=== PATIENT | female | born 1975 | race Two or more races ===

== ENCOUNTER 2025-01-26 13:21 | Emergency (ER) | payer SELFPAY ==
[2025-01-26 13:24] VITALS: BMI 46.5
--- NOTE | 2025-01-26 13:28 | EKG_ITS ---
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
[2025-01-26 13:36] VITALS: BP 179/135; BP 190/111; PULSE 89; RESP 20; TEMP 36.9; O2SAT 98; BMI 47.2
--- NOTE | 2025-01-26 13:39 | XR_ITS ---
EXAMINATION: PA lateral chest 2 views TECHNIQUE: Upright PA lateral chest 2 views Date and time: January 26, 2025, 1406 hours INDICATIONS: Cardiac palpitations today. FINDINGS: Normal heart size Lungs are clear. Osseous structures are intact IMPRESSION: No active disease
--- NOTE | 2025-01-26 13:39 | XR_ITS ---
Examination: CT brain head without contrast. 2-D sagittal coronal reconstructions Date and time of exam: January 26, 2025, 1417 hours INDICATIONS: Headaches with dizziness beginning today CTDI: vol (mGy): 53.2 DLP: (mGycm): 1100 Technique: Multiple CT axial sections of the brain have been obtained, 5 mm slice thickness. Contrast has not been administered. 2-D sagittal, coronal reconstructions have been obtained Low dose protocols were performed. One or more of the following dose reduction techniques were used; automated exposure control, adjustment of the mA and/or KV according to patient size, use of iterative reconstruction technique. Findings: No significant ventricular enlargement. Intra-axial or extra-axial hemorrhage density is not seen. No mass effect or midline shift Basal cisterns are not remarkable. Fourth ventricle is midline. Cranial vault intact. Impression: Negative for acute hemorrhage, mass effect or midline shift Advise clinical correlation and follow-up accordingly
--- NOTE | 2025-01-26 13:42 | PD.EDRME ---
Rapid Medical Screening Exam RME Arrival date/time: 01/26/25 13:21 49-year-old female presents to the Emergency Department today for complaints of chest pain and headache as well as high blood pressure Chief Complaint: Arrhythmia/Palpitations Vital signs reviewed by provider: Yes Exam: On exam patient appears well does not appear ill or toxic Clinical Impression: Labs and imaging as well as EKG obtained
[2025-01-26 13:57] LABS: Collection Type, Urine Clean Catch
[2025-01-26 14:00] LABS: Basophils # (Auto) 0.1 Thou/mm3 (0.0-0.2); Basophils % (Auto) 1 % (0-2.5); Eosinophils # (Auto) 0.1 Thou/mm3 (0.0-0.5); Eosinophils % (Auto) 1 % (0-10); Hematocrit 40.0 % (36.0-46.0); Hemoglobin 12.8 g/dL (12.0-16.0); Immature Granulocytes Auto 0.04 Thou/mm3 (0.00-0.00); Lymphocytes # (Auto) 2.8 Thou/mm3 (1.0-4.8); Lymphocytes % (Auto) 34 % (10-50); Mean Corpuscular HGB Conc 32.0 g/dl (31.0-37.0); Mean Corpuscular Hemoglobin 26.9 pg (25.0-35.0); Mean Corpuscular Volume 84 fL (80-100); Monocytes # (Auto) 0.4 Thou/mm3 (0.0-0.8); Monocytes % (Auto) 5 % (0-12); Neutrophils # (Auto) 5.0 Thou/mm3 (1.8-7.7); Neutrophils % (Auto) 60 % (37-80); Nucleated Red Blood Cell # 0.00 Thou/mm3 (0.00-0.00); Nucleated Red Blood Cell % 0 /100 WBC (0); Platelet Count 229 Thou/mm3 (140-440); RDW Standard Deviation 43.0 fL (36.4-46.3); Red Blood Count 4.76 Miln/mm3 (4.00-5.20); White Blood Count 8.3 Thou/mm3 (3.6-11.0)
[2025-01-26 14:07] LABS: Bacteria,Urine Rare; Bilirubin,Urine Negative (Negative); Blood,Urine Negative (Negative); Clarity,Urine Clear (Clear/Hazy); Color,Urine Lt-Yellow (Lt Yel-Yel); Culture Indicated,Urine Not Indicated; Glucose, Urine Negative (Negative); Ketones,Urine Negative (Negative); Leukocyte Esterase,Urine Positive (Negative); Nitrite,Urine Negative (Negative); PH,Urine 7.0 (5.0-7.0); Protein,Urine Negative (Neg - Trace); RBC,Urine 2 /hpf (0-3); Specific Gravity,Urine 1.019 (1.001-1.035); Squamous Epithelial Cell,Urine < 1 /hpf (0-5); Urobilinogen,Urine Negative mg/dL (0.0-1.0); WBC,Urine 1 /hpf (0-5)
[2025-01-26 14:08] LABS: HCG Qualitative,Urine Negative
[2025-01-26 14:12] LABS: Amphetamine/Methamp Scrn,U Negative (Negative); Barbiturate Screen,Urine Negative (Negative); Benzodiazepines Screen,Urine Negative (Negative); Benzoylecgonine Screen, Ur Negative (Negative); Fentanyl Screen,Urine Negative (Negative); Opiate Screen,Urine Negative (Negative); THC Screen,Urine Negative (Negative)
[2025-01-26 14:15] LABS: INR 0.9 (0.9-1.3); Partial Thromboplastin Time 28.8 Seconds (22.0-36.0); Prothrombin Time 10.1 Seconds (9.0-12.2)
[2025-01-26 14:16] LABS: B-Type Natriuretic Peptide 46 pg/mL (0-100)
[2025-01-26 14:19] LABS: Alanine Aminotransferase 15 U/L (10-49); Albumin, Serum 4.9 gm/dL (3.5-5.0); Albumin/Globulin Ratio 1.6 (1.2-2.2); Alkaline Phosphatase 76 U/L (46-116); Anion Gap 8 (7-16); Aspartate Amino Transferase 14 U/L (0-34); BUN/Creatinine Ratio 9 Ratio (12-20); Bilirubin,Total 0.4 mg/dL (0.3-1.2); Blood Urea Nitrogen 7 mg/dL (9-23); Calcium 9.2 mg/dL (8.3-10.6); Calcium (Corrected) 9.2 mg/dL (8.5-10.1); Carbon Dioxide 25.7 mMol/L (20.0-31.0); Chloride 107 mMol/L (98-107); Creatinine (Component) 0.8 mg/dL (0.6-1.3); Estimated Creatinine Clearance 117.7 mL/min (>60); Globulin 3.1 gm/dL (2.3-3.5); Glucose 92 mg/dL (74-106); Magnesium 2.2 mg/dL (1.6-2.6); Osmolality,Calculated 279 (275-295); Potassium 4.2 mMol/L (3.4-5.1); Sodium 141 mMol/L (136-145); Total Protein 8.0 gm/dL (5.7-8.2); Troponin I < 0.002 ng/mL (0.0-0.045); eGFR > 60 See Note
[2025-01-26 15:19] VITALS: BP 182/113; PULSE 79
[2025-01-26 15:20] VITALS: BP 182/113; PULSE 73; RESP 18; TEMP 36.9; O2SAT 98
[2025-01-26 16:53] VITALS: BP 159/100; PULSE 78; RESP 18; TEMP 36.5; O2SAT 97
--- NOTE | 2025-01-26 16:53 | EDNOTE_ITS ---
ED Arrhythmia Palp. RME/HPI General Chief Complaint: Arrhythmia/Palpitations Stated Complaint: RED EYE, PALPITATIONS AT 0200 Arrival date/time: 01/26/25 13:21 Limitations: no limitations RME / HPI RME / HPI narrative: 01/26/25 13:21 49-year-old female presents to the Emergency Department today for complaints of chest pain and headache as well as high blood pressure DR. JASON DIAZ ED EVALUATION 49 year old female with history of hypertension presents to the ED for evaluation of palpitations and chest pressure that woke her from sleep at 02:00 AM today. Accompanied by a headache and left eye redness. Patient mentioned her PCP is out of the office until 02/01/2025 and has not been taking her antihypertensive medications as directed due to running low. Denies any fevers, chills, sweats, cough, shortness of breath, abdominal pain, n/v/d, or urinary symptoms. Exam: On exam patient appears well does not appear ill or toxic Impression: Labs and imaging as well as EKG obtained Related Data Home Medications ?Medication ?Instructions ?Recorded ?Confirmed lisinopril 40 mg tablet mg 01/26/25 metoprolol succinate 50 mg mg PO 01/26/25 tablet,extended release 24 hr Previous Rx's ?Medication ?Instructions ?Recorded diazepam 10 mg tablet (Valium) 10 mg PO BID PRN muscle 02/10/20 spasm/tension #10 tabs naproxen 500 mg tablet (Naprosyn) 500 mg PO BID PRN pa in #30 tabs 02/10/20 lisinopril 40 mg tablet 40 mg PO QDAY #30 tabs 01/26 metoprolol succinate 50 mg 50 mg PO QDAY #30 tabs 01/02 08/25 tablet,extended release 24 hr Allergies Allergy/AdvReac Type Severity Reaction Status Date / Time No Known Allergies Allergy Verified 01/26/25 13:24 Review of Systems Review of Systems Systems Reviewed: All systems reviewed, normal except as documented Past Medical History Past Medical History CARDIAC: Positive Cardiac Disorders and Hypertension RESPIRATORY: Positive Asthma PSYCHO/SOCIAL: Positive Anxiety Family History FAMILY HISTORY: Positive Family Cardiac Disorders, Family Cancer and Family Surgery; Negative Family Respiratory Disorders Social History SMOKING STATUS: Never smoker SUBSTANCE USE: does not use ED Exam General Limitations: Present no limitations General appearance: Present alert and in no apparent distress Head Head exam: Present atraumatic Eye Eye exam: Present PERRL, EOMI and other (subconjunctival hemorrhage right eye ) ENT ENT exam: Present normal exam, normal oropharynx and mucous membranes moist Neck Neck exam: Present normal inspection, full ROM and trachea midline Chest Chest inspection: Present normal inspection and symmetric chest wall rise Respiratory Respiratory exam: Present normal lung sounds bilaterally Cardiovascular Cardiovascular exam: Present regular rate, normal rhythm and normal heart sounds Abdominal Exam Abdominal exam: Present soft and normal bowel sounds Extremities Exam Extremities exam: Present normal inspection and full ROM Back Exam Back exam: Present normal inspection and full ROM Neurological Exam Neurological exam: Present alert, oriented X3 and CN II-XII intact Psychiatric Psychiatric exam: Present normal affect and normal mood Skin Skin exam: Present warm, dry, intact and normal color Course Quality Measures none Orders Category Date Time Status EKG (ED ONLY) *Do not use* NOW Care 01/26/25 13:[address] head/brain wo con Stat Exams 01/26/25 13:39 Completed EKG (ED Only) Stat Exams 01/26/25 13:28 Draft XR chest 2V Stat Exams 01/26/25 13:39 Completed B-Type Natriuretic Peptide Stat Lab 01/26/25 13:48 Completed CBC Stat Lab 01/26/25 13:48 Completed Comprehensive Metabolic Panel Stat Lab 01/26/25 13:48 Completed Drug Screen,Urine Stat Lab 01/26/25 13:51 Completed HCG Qualitative,Urine Stat Lab 01/26/25 13:51 Completed Magnesium Stat Lab 01/26/25 13:48 Completed Partial Thromboplastin Time Stat Lab 01/26/25 13:48 Completed Prothrombin Time with INR Stat Lab 01/26/25 13:48 Completed Troponin I Stat Lab 01/26/25 13:48 Completed Troponin I Stat Lab 01/26/25 16:35 Received Urinalysis, C/S if Indicated Stat Lab 01/26/25 13:51 Completed cloNIDine HCL [Catapres] Med 01/26/25 13:42 Discontinued 0.2 mg PO X1 ONE Vital Signs Vital signs: Vital Signs Temperature 98.4 F 01/26/25 13:36 Pulse Rate 89 01/26/25 13:36 Respiratory Rate 20 01/26/25 13:36 Blood Pressure 190/111 H 01/26/25 13:36 Pulse Oximetry (%) 98 01/26/25 13:36 Oxygen Delivery Method Room Air 01/26/25 13:36 Arrhythmia/Palpitations MDM Narrative [facility] Narrative:: ICrystal, am scribing for and in the presence of Dr. Phan. Patient is a 49-year-old female is in the emergency room with concerns for chest pain, lateral neck pain as well as headache. Patient also with concerns because of redness in her right eye. Vital signs and exam as listed. Concern for subconjunctival hemorrhage, symptomatic hypertension, tension headache, ACS, arrhythmia intracranial hemorrhage among others. Ordered medication for symptom relief, labs, EKG CT and chest x-ray. Evaluated patient's eye patient is not having any visual field disturbances or blurry vision, no pain with extraocular muscle movements. Cornea not hazy. No skin erythema fluctuance crepitus around the eye. Less likely glaucoma. Less likely preseptal or orbital cellulitis. Globe is intact less likely for perforation. No history of trauma less likely abrasion corneal. Symptoms most consistent with subconjunctival hemorrhage given patient presenting with a systolic blood pressure in the 190s. EKG performed today at 1332 interpreted by me, notable for sinus rhythm normal intervals, nonspecific T wave changes, no cardiac alert. Troponin not elevated. Chest x-ray remarkable. CT brain without any acute intracranial abnormalities. Labs without any acute hematologic or metabolic disturbance, no transaminitis no evidence of renal dysfunction urinalysis with leuk esterase +2 RBCs 1 WBC rare bacteria patient without dysuria less likely urinary tract infection. Drug screen negative, patient is not . On reevaluation symptoms significantly improved, patient hemodynamically stable and not in distress. Patient did state that she has been rationing her blood pressure medications and has not been taking them as prescribed because she was prior to running out. I let her know that I was happy to refill her prescriptions. She was appreciative. Patient will be discharged home with close return precautions follow-up with her primary care doctor Patient data External records reviewed:: [facility] previous records Clinical information provided by:: patient Social determinants that could affect healthcare access:: none Patient has the following chronic illnesses:: Hypertension How is presenting disease/condition affected by chronic disease/condition?: exacerbated by Evaluation data The following diagnostics were reviewed and interpreted by me:: lab results, radiology exam(s) and EKG tracing(s) Lab and/or radiology exams considered but not ordered:: None Interpretation Summary: Ordering Physician: Hilario Worley NP, NP Date of Service: 01/26/25 Procedure(s): XR chest 2V Accession Number(s): [id number] cc: Hilario Worley NP, NP; Porter Mcdowell MD; Robi Lloyd MD~ EXAMINATION: PA lateral chest 2 views TECHNIQUE: Upright PA lateral chest 2 views Date and time: January 26, 2025, 1406 hours INDICATIONS: Cardiac palpitations today. FINDINGS: Normal heart size Lungs are clear. Osseous structures are intact IMPRESSION: No active disease Dictated By: Porter Mcdowell MD Signed By: <Electronically signed by Porter Mcdowell MD in OV> 01/26/25 1439 Ordering Physician: Brunilda ELLIS)Hilario NP Date of Service: 01/26/25 Procedure(s): CT head/brain wo con Accession Number(s): [id number] cc: Hilario Worley NP, NP; Porter Mcdowell MD; Robi Lloyd MD~ Examination: CT brain head without contrast. 2-D sagittal coronal reconstructions Date and time of exam: January 26, 2025, 1417 hours INDICATIONS: Headaches with dizziness beginning today CTDI: vol (mGy): 53.2 DLP: (mGycm): 1100 Technique: Multiple CT axial sections of the brain have been obtained, 5 mm slice thickness. Contrast has not been administered. 2-D sagittal, coronal reconstructions have been obtained Low dose protocols were performed. One or more of the following dose reduction techniques were used; automated exposure control, adjustment of the mA and/or KV according to patient size, use of iterative reconstruction technique. Findings: No significant ventricular enlargement. Intra-axial or extra-axial hemorrhage density is not seen. No mass effect or midline shift Basal cisterns are not remarkable. Fourth ventricle is midline. Cranial vault intact. Impression: Negative for acute hemorrhage, mass effect or midline shift Advise clinical correlation and follow-up accordingly Dictated By: Porter Mcdowell MD Signed By: <Electronically signed by Porter Mcdowell MD in OV> 01/26/25 1439 Medications / Prescriptions Medications or Prescriptions considered but not ordered:: None Medication administrations:: Medication Administration History Discontinued Medications Clonidine (Clonidine Hcl 0.1 Mg Tablet) 0.2 mg PO X1 ONE Stop: 01/26/25 13:43 Last Admin: 01/26/25 15:19 Dose: 0.2 mg Documented By: Consultations Consultation(s) initiated? (list below): No Diagnosis Most likely diagnosis given after review of the tests above:: Hypertension Headache Muscle strain subconjunctival hemorrhage Admission Indicated Admission indicated?: not indicated Explain why admission is indicated or not indicated:: With no condition needing emergent intervention, there was no indication for admission. Admission Request Was there a request for admission?: No Disposition Plan Disposition Plan: Discharge Discharge Attestation Discharge Attestation: The patient and all family members were given an opportunity to ask questions and understood the discharge instructions. Discharge instructions specifically effects, indications for sooner follow up or return to the emergency department, and the expected course of current diagnosis. Patient condition: Stable Discharge Plan Plan Patient Disposition: HOME (Self Care) Prescriptions/Referrals Prescriptions/Med Rec: New metoprolol succinate 50 mg tablet extended release 24 hr 50 mg PO QDAY Qty: 30 0RF lisinopril 40 mg tablet 40 mg PO QDAY Qty: 30 0RF No Action diazepam [Valium] 10 mg tablet 10 mg PO BID PRN (Reason: muscle spasm/tension ) Qty: 10 0RF naproxen [Naprosyn] 500 mg tablet 500 mg PO BID PRN (Reason: pain) Qty: 30 0RF metoprolol succinate 50 mg tablet extended release 24 hr PO Patient Comments: TAKE 1 TABLET BY MOUTH TWICE A DAY lisinopril 40 mg tablet Patient Comments: TAKE 1 TABLET DAILY WITH MEALS Referrals: Robi Lloyd MD [Primary Care Provider, Family Practice] - In 1 week Problem List Clinical Impression: Hypertension, Headache, Muscle strain, Subconjunctival hemorrhage Patient/Caregiver Discharge Instructions Education Materials: Blood Pressure Check Steps Additional Instructions: Your labs today did not identify any acute hematologic or metabolic abnormality your cardiac enzyme was not elevated on 2 separate assessments. Your EKG did not show any evidence that you are having a heart attack. CT of your brain was normal. Your chest x-ray was normal. It is important that you follow-up with your primary care doctor and discuss your hypertension and symptoms from today. Also recommend that you see an clinical director for follow-up of your subconjunctival hemorrhage. If you develop worsening headaches, or any other symptom of concern please return to the emergency department. Please take your medications as prescribed. We have refilled your blood pressure medications per your prior prescription. Print Language: Croatian Stand Alone Forms: Nat Award Info., Patient Portal Info Letter
[2025-01-26 16:57] LABS: Troponin I < 0.002 ng/mL (0.0-0.045)
[2025-01-26 17:27] VITALS: BP 159/100; PULSE 78
== END 2025-01-26 17:30 | disposition home or self-care (01) ==
PROVIDERS: Nurse Practitioner Primary Care; Emergency Provider Emergency Medicine; PCP Family Medicine
DX: S29.011A Strain of muscle and tendon of front wall of thorax, initial encounter (principal); I10 Essential (primary) hypertension; H11.31 Conjunctival hemorrhage, right eye; R51.9 Headache, unspecified; R42 Dizziness and giddiness; X58.XXXA Exposure to other specified factors, initial encounter
CPT/HCPCS: 36415; 70450; 71046; 80053; 80307; 81001; 81025; 83735; 83880; 84484; 85025; 85610; 85730; 93005; 99283; A9270